=== PATIENT | female | born 1960 | race Hispanic/Latino ===

== ENCOUNTER 2024-04-09 07:54 | Day surgery (SDC) | payer OTHER ==
[2024-04-09] VITALS (10 sets, daily range): BP systolic 85–170; BP diastolic 44–74; PULSE 64–83; RESP 15–17; TEMP 96.6–98.2
[~2024-04-09] VITALS: Ht 147.3 cm; Wt 81.2 kg
[2024-04-09] MEDS ORDERED: SEMA1PEN3 SQ (09:42)
[2024-04-09] MEDS ORDERED: CLOP75TA32 PO (09:42)
[2024-04-09] MEDS ORDERED: GLIP5TAB15 PO (09:42)
[2024-04-09] MEDS ORDERED: ATOR40TA69 PO (09:42)
[2024-04-09] MEDS ORDERED: METO-391 PO (09:42)
[2024-04-09] MEDS ORDERED: METF-446 PO (09:42)
[2024-04-09] MEDS ORDERED: LISI20TA24 PO (09:42)
[2024-04-09] MEDS ORDERED: NITR0.4T50 SL (09:50)
[2024-04-09] MEDS ORDERED: AMOX500C2 PO (09:50)
[2024-04-09] MEDS ORDERED: 0.9%NACL 1000ML 1,000 ML IV ONE (09:55)
[2024-04-09] MEDS ORDERED: proPOFol 10 MG/ML 20ML VIAL IV ONE (10:21)
[2024-04-09] MEDS ORDERED: LIDOCAINE HCL-MPF 2% 10ML AMP IJ ONE (10:22)
== END 2024-04-09 11:40 | disposition home or self-care (01) ==
LOC: DAH 07:54 → ENDO 07:54
PROVIDERS: ATTEND Internal Medicine Gastroenterology
DX: Z12.11 Encounter for screening for malignant neoplasm of colon (principal); K64.0 First degree hemorrhoids; K57.30 Diverticulosis of large intestine without perforation or abscess without bleeding; I10 Essential (primary) hypertension; E11.9 Type 2 diabetes mellitus without complications; K29.70 Gastritis, unspecified, without bleeding; E78.5 Hyperlipidemia, unspecified; B96.81 Helicobacter pylori [H. pylori] as the cause of diseases classified elsewhere; Z90.710 Acquired absence of both cervix and uterus; Z95.0 Presence of cardiac pacemaker; Z86.0100 Personal history of colon polyps, unspecified; Z95.5 Presence of coronary angioplasty implant and graft; Z79.84 Long term (current) use of oral hypoglycemic drugs; Z79.899 Other long term (current) drug therapy
CPT/HCPCS: 45378; 82948 ×2; J7030 ×2; J2704; J3490; A4615; A4215 ×2; A4223; A4222; A4221; A4663; A4606